=== PATIENT | female | born 1990 | race Asian ===

== ENCOUNTER 2016-12-05 17:21 | Emergency (ER) | payer OTHER ==
[~2016-12-05] VITALS: Ht 177.8 cm; Wt 95.3 kg
== END 2016-12-05 19:09 | disposition home or self-care (01) ==
LOC: ED 17:21
DX: S00.83XA Contusion of other part of head, initial encounter (principal); V43.52XA Car driver injured in collision with other type car in traffic accident, initial encounter
CPT/HCPCS: 99283